=== PATIENT | male | born 1940 | race Caucasian/White ===

== ENCOUNTER 2018-07-18 10:39 | Emergency (ER) | payer MEDICARE, BC ==
[2018-07-18 11:27] LABS: ABSOLUTE BASOPHILS # (AUTO) 0.1 10^3/uL (0.0-0.2); ABSOLUTE EOSINOPHILS # (AUTO) 0.4 10^3/uL (0.0-0.6); ABSOLUTE LYMPHOCYTES (AUTO) 1.3 10^3/uL (0.5-4.7); ABSOLUTE MONOCYTES (AUTO) 0.8 10^3/uL (0.1-1.4); ABSOLUTE NEUT (AUTO) 6.4 10^3/uL (1.7-8.2); EOSINOPHILS % (AUTO) 4.5 % (0-6); HEMATOCRIT 27.6 % (37.9-51.0); HEMOGLOBIN 8.5 g/dL (13.5-17.0); MEAN CORPUSCULAR HEMOGLOBIN 24.5 pg (27.0-33.4); MEAN CORPUSCULAR HGB CONC 30.6 g/dL (32.0-36.0); MEAN CORPUSCULAR VOLUME 80 fl (80-97); MONOCYTES % (AUTO) 8.5 % (3-13); PLATELET COUNT 258 10^3/uL (150-450); RED BLOOD COUNT 3.45 10^6/uL (4.35-5.55); RED CELL DISTRIBUTION WIDTH 18.3 % (11.5-14.0); TOTAL CELLS COUNTED % (AUTO) 100 %
[2018-07-18 11:56] LABS: ALANINE AMINOTRANSFERASE 14 U/L (21-72); ALBUMIN 3.8 g/dL (3.5-5.0); ALKALINE PHOSPHATASE 68 U/L (38-126); ANION GAP 10 (5-19); ASPARTATE AMINO TRANSFERASE 28 U/L (17-59); BILIRUBIN,DIRECT 0.2 mg/dL (0.0-0.4); BILIRUBIN,TOTAL 0.3 mg/dL (0.2-1.3); BLOOD UREA NITROGEN 10 mg/dL (7-20); CALCIUM 9.2 mg/dL (8.4-10.2); CARBON DIOXIDE 22 mmol/L (22-30); CHLORIDE 115 mmol/L (98-107); GLUCOSE 84 mg/dL (75-110); SODIUM 146.5 mmol/L (137-145); TOTAL PROTEIN 7.2 g/dL (6.3-8.2)
[2018-07-18] MEDS ORDERED: NORMAL SALINE 250 ML IV PRN (12:45)
--- NOTE | 2018-07-18 17:56 | ER Document Report ---
ED General - General Chief Complaint: Abnormal Lab Results Stated Complaint: ABNORMAL LABS Primary Care Provider: BRAEDEN OAKES MD [Primary Care Provider] - Follow up as needed Mode of Arrival: Ambulatory Information source: Patient Notes: Patient is a 77-year-old male presented to the emergency department with complaint of abnormal labs. Patient had labs drawn last week and Dr. Lee bradshaw office and was found to have a hemoglobin of 8.5. Today labs were redrawn and he had a hemoglobin of 7.9. His primary care provider is requesting patient to come to the ED to have evaluation and a blood transfusion. Patient reports generalized weakness and fatigue lately. He states that he was recently diagnosed with colon cancer. He is supposed to have a follow-up with a surgeon this in [place]. He denies any nausea, vomiting, diarrhea or fevers. TRAVEL OUTSIDE OF THE [place] IN LAST 30 DAYS: No - Related Data Allergies/Adverse Reactions: No Known Allergies Allergy (Verified 07/18/18 11:09) Past Medical History - General Information source: Patient - Social History Smoking Status: Never Smoker Chew tobacco use (# tins/day): No Frequency of alcohol use: Social Drug Abuse: None Family History: Reviewed & Not Pertinent Patient has suicidal ideation: No Patient has homicidal ideation: No - Past Medical History Cardiac Medical History: Reports: Hx Congestive Heart Failure, Hx Coronary Artery Disease, Hx Heart Attack, Hx Hypertension, Hx Peripheral Vascular Disease Pulmonary Medical History: Reports: Hx COPD Renal/ Medical History: Denies: Hx Peritoneal Dialysis Malignancy Medical History: Reports Hx Colorectal Cancer GI Medical History: Reports: Hx Gastroesophageal Reflux Disease, Hx Ulcerative Colitis - History of "ulcerative colitis 20 years ago. Colonoscopy normal last year Musculoskeletal Medical History: Reports Hx Arthritis Past Surgical History: Reports: Hx Cardiac Surgery - pacer/defib, Hx Coronary Stent - 3, Hx Orthopedic Surgery - L hip. R toe, Hx Pacemaker - AICD/pacer Review of Systems - Review of Systems Constitutional: See HPI EENT: No symptoms reported Cardiovascular: No symptoms reported Respiratory: No symptoms reported Gastrointestinal: Abdominal pain - for months Genitourinary: No symptoms reported Male Genitourinary: No symptoms reported Musculoskeletal: No symptoms reported Skin: No symptoms reported Hematologic/Lymphatic: No symptoms reported Neurological/Psychological: No symptoms reported Physical Exam - Vital signs Vitals: BP 119/82 07/18/18 09:42 - Notes Notes: PHYSICAL EXAMINATION: GENERAL: Well-appearing, well-nourished and in no acute distress. HEAD: Atraumatic, normocephalic. EYES: Pupils equal round and reactive to light, extraocular movements intact, sclera anicteric, conjunctiva are normal. ENT: Nares patent, oropharynx clear without exudates. Moist mucous membranes. NECK: Normal range of motion, supple without lymphadenopathy. LUNGS: Breath sounds clear to auscultation bilaterally and equal. No wheezes rales or rhonchi. HEART: Regular rate and rhythm without murmurs ABDOMEN: Soft, nontender, nondistended abdomen. No guarding, no rebound. No masses appreciated. Musculoskeletal: Normal range of motion, no pitting or edema. No cyanosis. NEUROLOGICAL: Cranial nerves grossly intact. Normal speech, normal gait. Normal sensory, motor exams PSYCH: Normal mood, normal affect. SKIN: Warm, Dry, normal turgor, no rashes or lesions noted. Course - Re-evaluation Re-evalutation: Hemoglobin today is 8.5. Will transfuse patient due to patient having symptomat ic anemia. Patient will be discharged home at that time. He already has follow-up planned with his primary care provider as well as surgery for his recently diagnosed colon cancer. 07/18/18 18:00 Second unit of PRBCs has not been initiated as of this time. I called lab lab states the unit is ready. Charge nurse made aware. Patient received second unit of PRBCs and has had no signs of transfusion reaction. Patient tolerated well. Vital signs are within normal limits. Lung sounds remain clear and equal. Patient will be discharged home at this time with close follow-up with PCP. - Vital Signs Vital signs: Temp Pulse Resp BP Pulse Ox 98.3 F 73 15 153/68 H 98 07/18/18 20:25 07/18/18 20:25 07/18/18 21:01 07/18/18 21:00 07/18/18 21:01 - Laboratory Result Diagrams: 07/18/18 11:10 07/18/18 11:10 Laboratory results interpreted by me: 07/18/18 07/18/18 07/18/18 11:10 11:10 11:58 RBC 3.45 L Hgb 8.5 L Hct 27.6 L MCH 24.5 L MCHC 30.6 L RDW 18.3 H Sodium 146.5 H Chloride 115 H ALT 14 L Crossmatch See Detail Discharge - Discharge Clinical Impression: blood transfusion Fatigue Qualifiers: Fatigue type: unspecified Qualified Code(s): R53.83 - Other fatigue Condition: Stable Disposition: HOME, SELF-CARE Additional Instructions: You received 2 units of packed red blood cells today while in the emergency department. Your hemoglobin at the time of arrival was 8.5. Please keep a close follow-up with your primary care physician. Call them tomorrow to schedule a follow-up appointment. Return to the emergency department with any new or worsening symptoms. Referrals: BRAEDEN OAKES MD [Primary Care Provider] - Follow up as needed
[2018-07-18] MEDS ORDERED: PREGABALIN 50 MG CAPSULE PO ONE (19:31)
[2018-07-18] MEDS ORDERED: PREGABALIN 100 MG CAPSULE PO ONE (19:31)
[2018-07-18] MEDS ORDERED: IBUPROFEN 800 MG TABLET PO ONE (19:32)
[2018-07-18 21:24] VITALS: BP 133/84
== END 2018-07-18 21:26 | disposition home or self-care (01) ==
LOC: ER 10:39
DX: D64.9 Anemia, unspecified (principal); R53.1 Weakness; R53.83 Other fatigue; Z85.038 Personal history of other malignant neoplasm of large intestine; I50.9 Heart failure, unspecified; I25.10 Atherosclerotic heart disease of native coronary artery without angina pectoris; I11.0 Hypertensive heart disease with heart failure
CPT/HCPCS: 99283; 86900; 86901; 36415; 36430; 86850; 85025; 80053; 86920; P9016; A9270 ×3; J3490

== ENCOUNTER 2018-11-14 05:51 | Inpatient (IN) | payer MEDICARE, BC ==
--- NOTE | 2018-11-14 06:55 | ER Document Report ---
Entered by FADUMO CHO SCRIBE 11/14/18 0625 Acting as scribe for:SERGEI WHYTE MD ED Extremity Problem, Lower - General Stated Complaint: HIP PAIN Time Seen by Provider: 11/14/18 06:15 Primary Care Provider: BRAEDEN OAKES MD [Primary Care Provider] - Follow up as needed Mode of Arrival: Ambulatory Information source: Patient Notes: Patient is a 77-year-old male that presents to the emergency department today with complaints of left hip pain. Patient states he was sitting on the edge of his bathtub changing a bandage on his left ankle when the pain began. Patient states when he twisted to reach his left ankle he began having an excruciating sharp pain in his left hip causing him to slide off of the bathtub ledge down to the floor approximately 18 inches. Patient states he slid down easily, did not have a traumatic fall. Patient states he has had his left hip replaced twice as the first hip replacement "cup wore out". Patient states he was unable to ambulate after this secondary to pain. Patient denies a history of left hip dislocation. Patient states when he is lying still in bed he does not have any pain. TRAVEL OUTSIDE OF THE [place] IN LAST 30 DAYS: No - Related Data Allergies/Adverse Reactions: No Known Allergies Allergy (Verified 07/18/18 11:09) Past Medical History - General Information source: Patient, [facility] Records - Social History Smoking Status: Former Smoker - quit 42 years ago Cigarette use (# per day): No Chew tobacco use (# tins/day): No Smoking Education Provided: No Frequency of alcohol use: None Drug Abuse: None Lives with: Family Family History: Reviewed & Not Pertinent - Past Medical History Cardiac Medical History: Reports: Hx Congestive Heart Failure, Hx Coronary Artery Disease, Hx Heart Attack, Hx Hypertension, Hx Peripheral Vascular Disease Pulmonary Medical History: Reports: Hx COPD Malignancy Medical History: Reports Hx Colorectal Cancer GI Medical History: Reports: Hx Gastroesophageal Reflux Disease, Hx Ulcerative Colitis - History of "ulcerative colitis 20 years ago. Colonoscopy normal last year Musculoskeletal Medical History: Reports Hx Arthritis Past Surgical History: Reports: Hx Cardiac Surgery - pacer/defib, Hx Coronary Stent - 3, Hx Orthopedic Surgery - L hip. R toe, Hx Pacemaker - AICD/pacer Review of Systems - Review of Systems Constitutional: No symptoms reported EENT: No symptoms reported Cardiovascular: No symptoms reported Respiratory: No symptoms reported Gastrointestinal: No symptoms reported Genitourinary: No symptoms reported Male Genitourinary: No symptoms reported Musculoskeletal: See HPI, Joint pain - left hip pain Skin: No symptoms reported Hematologic/Lymphatic: No symptoms reported Neurological/Psychological: No symptoms reported -: Yes All other systems reviewed and negative Physical Exam - Vital signs Vitals: Temp Pulse Resp BP Pulse Ox 97.5 F 70 17 112/62 96 11/14/18 05:56 11/14/18 05:56 11/14/18 05:56 11/14/18 05:56 11/14/18 05:56 - Notes Notes: Physical Exam: General: Alert, appears uncomfortable. HEENT: Normocephalic. Atraumatic. PERRL. Extraocular movements intact. Oropharynx clear. Neck: Supple. Non-tender. Respiratory: No respiratory distress. Clear and equal breath sounds bilaterally. Cardiovascular: Regular rate and rhythm. Abdominal: Normal Inspection. Non-tender. No distension. Normal Bowel Sounds. Back: No gross abnormalities. Extremities: Upper extremities: Ulnar deviation of fingers bilaterally consistent with history of RA Lower extremities: No cyanosis or pitting edema. Left hip is tender with palpation over the greater trochanter and just posterior to that. Pain with flexion and external rotation of left hip. Ulnar deviation of toes bilaterally consistent with history of RA. Neurological: Normal cognition. AAOx4. Normal speech. Psychological: Normal affect. Normal Mood. Skin: Warm. Dry. Normal color. Course - Re-evaluation Re-evalutation: 11/14/18 14:04 Patient was evaluated by Dr. Dorsey and the plan to take the patient to the operating room to reduce the hip under general anesthesia. - Vital Signs Vital signs: Temp Pulse Resp BP Pulse Ox 97.5 F 88 10 L 115/64 100 11/14/18 05:56 11/14/18 09:57 11/14/18 13:16 11/14/18 13:16 11/14/18 13:16 - Laboratory Result Diagrams: 11/14/18 07:05 11/14/18 07:05 Laboratory results interpreted by me: 11/14/18 11/14/18 07:05 07:05 RBC 4.04 L Hgb 9.0 L Hct 29.7 L MCV 74 L MCH 22.2 L MCHC 30.3 L RDW 18.8 H Chloride 109 H Carbon Dioxide 20 L - Diagnostic Test Radiology reviewed: Image reviewed, Reports reviewed - Left prosthetic hip dislocation - EKG Interpretation by Me EKG shows normal: [place], Intervals, QRS Complexes, ST-T Waves Rate: Normal - 72 Rhythm: Other - Atrialventricular Dual-paced complexes When compared to previous EKG there are: No significant change - Consults Dr. Dorsey Consulted provider: will come to ER Procedures - Conscious Sedation Conscious sedation Consent obtained: Yes Pt with a severe systemic disease.: P3. - ASA Classification. Airway Evaluation: Normal anatomy Mallampati Classification: Class 2 Used during procedure: Suction available, IV access obtained, Pulse ox on pt., manager monitoring on pt. Medications administered: Etomidate Reversal agents: None I personally performed/intraservice time: Sedation, Procedure, 30 min or less Complications: No - Joint Reduction/Fracture Care Left Hip Consent obtained: Yes Conscious sedation: Yes Pre-procedure NV exam: Yes Post-procedure NV exam: Yes Post-reduction x-ray: Joint not reduced - X-ray not obtained, was not necessary, clinically the joint did not reduce. Reduction attempts: 2 Complications: No Notes: 11/14/18 14:02 Unable to reduce the hip following 2 consecutive 10 mg doses of etomidate and pain control. Discharge - Discharge Clinical Impression: Dislocation of hip joint prosthesis Qualifiers: Encounter type: initial encounter Qualified Code(s): T84.029A - Dislocation of unspecified internal joint prosthesis, initial encounter Condition: Stable Disposition: ADMITTED INPATIENT Admitting Provider: Dr. Dorsey Unit Admitted: Surgical Floor Referrals: BRAEDEN OAKES MD [Primary Care Provider] - Follow up as needed Scribe Attestation: 11/14/18 07:10 I personally performed the services described in the documentation, reviewed and edited the documentation which was dictated to the scribe in my presence, and it accurately records my words and actions. I personally performed the services described in the documentation, reviewed and edited the documentation which was dictated to the scribe in my presence, and it accurately records my words and actions.
[2018-11-14] MEDS ORDERED: NORMAL SALINE 1000 ML 500 ML IV ONE (07:04)
[2018-11-14] MEDS ORDERED: MORPHINE SULFATE 10 MG/ML INJ IV ONE ×4 (07:05→13:44)
[2018-11-14] MEDS ORDERED: ONDANSETRON HCL INJ/PF 4 MG/2 ML SDV IV ONE ×3 (07:05→13:44)
[2018-11-14] MEDS ORDERED: ETOMIDATE INJ/PF 20 MG/10 ML SDV IV ONE (07:07)
[2018-11-14 07:19] LABS: ABSOLUTE BASOPHILS # (AUTO) 0.1 10^3/uL (0.0-0.2); ABSOLUTE EOSINOPHILS # (AUTO) 0.3 10^3/uL (0.0-0.6); ABSOLUTE LYMPHOCYTES (AUTO) 2.4 10^3/uL (0.5-4.7); ABSOLUTE NEUT (AUTO) 5.1 10^3/uL (1.7-8.2); EOSINOPHILS % (AUTO) 3.3 % (0-6); HEMATOCRIT 29.7 % (37.9-51.0); LYMPHOCYTES % (AUTO) 27.4 % (13-45); MEAN CORPUSCULAR HEMOGLOBIN 22.2 pg (27.0-33.4); MEAN CORPUSCULAR HGB CONC 30.3 g/dL (32.0-36.0); MEAN CORPUSCULAR VOLUME 74 fl (80-97); MONOCYTES % (AUTO) 11.3 % (3-13); PLATELET COUNT 263 10^3/uL (150-450); RED BLOOD COUNT 4.04 10^6/uL (4.35-5.55); RED CELL DISTRIBUTION WIDTH 18.8 % (11.5-14.0); TOTAL CELLS COUNTED % (AUTO) 100 %; WHITE BLOOD COUNT 8.9 10^3/uL (4.0-10.5)
--- NOTE | 2018-11-14 07:30 | RADIOLOGY REPORT (SQ) ---
EXAM DESCRIPTION: XR HIP 2 OR MORE VIEWS COMPLETED DATE/TME: 11/14/2018 06:23 CLINICAL HISTORY: 77 years, Male, fall, pain COMPARISON: None. FINDINGS: 2 views of the left hip. Superior dislocation involving the femoral component of the left total hip arthroplasty. No fracture identified. Osteopenia. Mild right hip joint space narrowing. IMPRESSION: 1. Superior dislocation of the femoral component of the left total hip arthroplasty. copyright 2010 [employer]- All Rights Reserved
--- NOTE | 2018-11-14 07:35 | EKG REPORT ---
SEVERITY:- ABNORMAL ECG - ATRIAL-VENTRICULAR DUAL-PACED COMPLEXES : Confirmed by: John Nguyen MD 14-Nov-2018 07:34:52
[2018-11-14 07:52] LABS: ALBUMIN 3.7 g/dL (3.5-5.0); ALKALINE PHOSPHATASE 75 U/L (38-126); ANION GAP 10 (5-19); ASPARTATE AMINO TRANSFERASE 30 U/L (17-59); BILIRUBIN,DIRECT 0.2 mg/dL (0.0-0.4); BILIRUBIN,TOTAL 0.2 mg/dL (0.2-1.3); BLOOD UREA NITROGEN 16 mg/dL (7-20); CALCIUM 9.4 mg/dL (8.4-10.2); CARBON DIOXIDE 20 mmol/L (22-30); CHLORIDE 109 mmol/L (98-107); GLUCOSE 91 mg/dL (75-110); POTASSIUM 3.7 mmol/L (3.6-5.0); TOTAL PROTEIN 6.9 g/dL (6.3-8.2)
--- NOTE | 2018-11-14 12:48 | PDOC H&P ---
History of Present Illness Admission Date/PCP: BRAEDEN OAKES MD Patient complains of: Left hip pain History of Present Illness: KIRSTEN SUAZO is a 77 year old male With history of left total hip arthroplasty original procedure was performed 26 years ago and then a revision of the acetabulum approximately 12 years ago. Patient states he has no history of dislocation. He states this morning he was turning his leg in order to adequately dressed the wound along his ankle when he felt a pop. Patient states he was unable to ambulate. Was brought to the emergency room where x-rays demonstrate hip dislocation. Patient states pain is worse with any motion. Denies numbness or tingling. Attempted closed reduction was performed emergency room but unsuccessfully. Pain 04/17. Past Medical History Cardiac Medical History: Reports: Congestive Heart Failure, Coronary Artery Disease, Myocardial Infarction, Hypertension, Peripheral Vascular Disease Pulmonary Medical History: Reports: Chronic Obstructive Pulmonary Disease (COPD) Malignancy Medical History: Reports: Colorectal Cancer GI Medical History: Reports: Gastroesophageal Reflux Disease, Ulcerative Colitis - History of "ulcerative colitis 20 years ago. Colonoscopy normal last year Musculoskeltal Medical History: Reports: Arthritis Past Surgical History Past Surgical History: Reports: Coronary Stent - 3, Orthopedic Surgery - L hip. R toe, Pacemaker - AICD/pacer Social History Lives with: Family Smoking Status: Former Smoker - quit 42 years ago Frequency of Alcohol Use: Rare Hx Recreational Drug Use: No Hx Prescription Drug Abuse: No Family History Family History: Reviewed & Not Pertinent Parental Family History Reviewed: No Children Family History Reviewed: Yes Sibling(s) Family History Reviewed.: No Medication/Allergy Home Medications: Carvedilol 12.5 mg PO BID 10/31/15 Clopidogrel Bisulfate [Clopidogrel] 75 mg PO QHS 10/31/15 Acetaminophen [Tylenol 325 mg Tablet] 650 mg PO Q4HP PRN tablet 11/01/15 Aspirin [Ecotrin] 81 mg PO DAILY PRN 11/01/15 Ciprofloxacin HCl [Cipro 500 mg Tablet] 500 mg PO BID #20 tablet 11/01/15 Docusate Sodium [Colace 100 mg Capsule] 100 mg PO BID #60 capsule 11/01/15 Methadone HCl 10 mg PO TID 11/01/15 Metronidazole [Flagyl 500 mg Tablet] 500 mg PO TID #30 tablet 11/01/15 Omeprazole 20 mg PO DAILY 11/01/15 Polyethylene Glycol 3350 [Miralax Powder 17 gm/Packet] 17 gm PO DAILY #30 powd.pack 11/01/15 Prednisone 5 mg PO DAILY 11/01/15 Allergies/Adverse Reactions: No Known Allergies Allergy (Verified 07/18/18 11:09) Review of Systems Constitutional: ABSENT: chills, fever(s), headache(s), weight gain, weight loss Eyes: ABSENT: visual disturbances Ears: ABSENT: hearing changes Cardiovascular: ABSENT: chest pain, dyspnea on exertion, edema, orthropnea, palpitations Respiratory: ABSENT: cough, hemoptysis Gastrointestinal: ABSENT: abdominal pain, constipation, diarrhea, hematemesis, hematochezia, nausea, vomiting Genitourinary: ABSENT: dysuria, hematuria Musculoskeletal: PRESENT: as per HPI Integumentary: ABSENT: rash, wounds Neurological: ABSENT: abnormal gait, abnormal speech, confusion, dizziness, focal weakness, syncope Psychiatric: ABSENT: anxiety, depression, homidical ideation, suicidal ideation Endocrine: ABSENT: cold intolerance, heat intolerance, menstrual abnormalities, polydipsia, polyuria Hematologic/Lymphatic: ABSENT: easy bleeding, easy bruising, lymphadenopathy Physical Exam Vital Signs: Temp Pulse Resp BP Pulse Ox 97.5 F 88 15 126/84 H 100 11/14/18 05:56 11/14/18 09:57 11/14/18 10:31 11/14/18 10:31 11/14/18 10:31 Intake & Output 11/13/18 11/14/18 11/15/18 06:59 06:59 06:59 Intake Total 500 Balance 500 Weight 73.028 kg General appearance: PRESENT: no acute distress, well-developed, well-nourished Head exam: PRESENT: atraumatic, normocephalic Eye exam: PRESENT: conjunctiva pink, EOMI, PERRLA. ABSENT: scleral icterus Ear exam: PRESENT: normal external ear exam Mouth exam: PRESENT: moist, tongue midline Neck exam: PRESENT: full ROM. ABSENT: carotid bruit, JVD, lymphadenopathy, thyromegaly Cardiovascular exam: PRESENT: RRR. ABSENT: diastolic murmur, rubs, systolic murmur Pulses: PRESENT: normal dorsalis pedis pul, +2 pedal pulses bilateral Vascular exam: PRESENT: normal capillary refill GI/Abdominal exam: PRESENT: normal bowel sounds, soft. ABSENT: distended, guarding, mass, organolmegaly, rebound, tenderness Rectal exam: PRESENT: deferred Musculoskeletal exam: PRESENT: other - Left hip: Short/externally rotated. Pain with any motion. Intact plantarflexion/dorsiflexion. No sensory deficits. Neurological exam: PRESENT: alert, awake, oriented to person, oriented to place, oriented to time, oriented to situation, CN II-XII grossly intact. ABSENT: motor sensory deficit Psychiatric exam: PRESENT: appropriate affect, normal mood. ABSENT: homicidal ideation, suicidal ideation Skin exam: PRESENT: dry, intact, warm, other - Wound along the lateral malleolus of the left leg no erythema or drainage.. ABSENT: cyanosis, rash Results Laboratory Results: 11/14/18 07:05 11/14/18 07:05 11/14/18 11/14/18 07:05 07:05 WBC 8.9 RBC 4.04 L Hgb 9.0 L Hct 29.7 L MCV 74 L MCH 22.2 L MCHC 30.3 L RDW 18.8 H Plt Count 263 Seg Neutrophils % 57.0 Sodium 139.3 Potassium 3.7 Chloride 109 H Carbon Dioxide 20 L Anion Gap 10 BUN 16 Creatinine 1.00 Est GFR ( Amer) > 60 Glucose 91 Calcium 9.4 Total Bilirubin 0.2 AST 30 Alkaline Phosphatase 75 Total Protein 6.9 Albumin 3.7 Impressions: Hip X-Ray 11/14/18 06:23 IMPRESSION: 1. Superior dislocation of the femoral component of the left total hip arthroplasty. copyright 2010 [employer]- All Rights Reserved Assessment & Plan - Diagnosis (1) Dislocation of hip joint prosthesis Qualifiers: Encounter type: initial encounter Qualified Code(s): T84.029A - Dislocation of unspecified internal joint prosthesis, initial encounter; Z96.649 - Presence of unspecified artificial hip joint Is this a current diagnosis for this admission?: Yes Plan: Patient sustained left prosthetic hip dislocation. Today we discussed treatment options given the fact closed reduction was unsuccessful in the emergency room decision was made to proceed with closed reduction in the operating room. Risks and benefits of the surgical procedure were explained patient verbalized understanding consented for surgical procedure.
[2018-11-14] MEDS ORDERED: SUCCINYLCHOLINE CHLORIDE INJ 200 MG/10 ML VIAL ONE (14:39)
[2018-11-14] MEDS ORDERED: FENTANYL CITRATE INJ/PF 100 MCG/2 ML AMPUL ONE (16:11)
[2018-11-14] MEDS ORDERED: PROPOFOL INJ 200 MG/20 ML VIAL IV ONE (16:12)
--- NOTE | 2018-11-14 16:55 | Discharge Summary ---
Discharge Summary (SDC) - Discharge Final Diagnosis: Left prosthetic hip dislocation Date of Surgery: 11/14/18 Discharge Date: 11/14/18 Condition: Good Treatment or Instructions: Weightbearing as tolerated ambulation. Avoid the position of flexion, adduction, and internal rotation Prescriptions: Oxycodone HCl/Acetaminophen [Percocet 5-325 mg Tablet] 1 tab PO Q6 PRN #25 tab PRN Reason: Referrals: BRAEDEN OAKES MD [Primary Care Provider] - Follow up as needed Discharge Diet: Regular Respiratory Treatments at Home: Deep Breathing/Coughing Home Care Assistance: None Needed Report the Following to Your Physician Immediately: Shortness of Breath, Fever over 101 Degrees
--- NOTE | 2018-11-14 16:56 | Operative Report ---
Operative Report DATE OF SURGERY: 11/14/18 PREOPERATIVE DIAGNOSIS: Left prosthetic hip dislocation OPERATION: Closed reduction left prosthetic hip SURGEON: DESIRE BYERS ANESTHESIA: Moderate Sedation PROCEDURE: With the patient supine on the operative table with muscle relaxant on board the left hip was manipulated with a combination of internal rotation, distraction, adduction and subsequently a slow gentle external rotation once the head was centered over the cup. Radiographically there was a confirmed concentric reduction of the hip. The patient's return to the PACU in satisfactory condition.
[2018-11-14] MEDS ORDERED: PROMETHAZINE HCL INJ 25 MG/1 ML VIAL IV PRN (17:19)
[2018-11-14] MEDS ORDERED: DIPHENHYDRAMINE HCL 50 MG/ML VIAL IV PRN (17:19)
[2018-11-14] MEDS ORDERED: ONDANSETRON HCL INJ/PF 4 MG/2 ML SDV IV PRN (17:19)
[2018-11-14] MEDS ORDERED: FENTANYL CITRATE INJ/PF 100 MCG/2 ML AMPUL IV PRN ×3 (17:19)
[2018-11-14 17:44] VITALS: BP 117/52
--- NOTE | 2018-11-14 19:22 | RADIOLOGY REPORT (SQ) ---
EXAM DESCRIPTION: NO CHG FLUORO; HIP LEFT AP/LATERAL COMPLETED DATE/TIME: 11/14/2018 6:49 pm REASON FOR STUDY: CLOSED REDUCTION HIP IN OR COMPARISON: 11/14/2018 FLUOROSCOPY TIME: 0.6 minutes 1 images saved to PACS. TECHNIQUE: Intra-operative images acquired during surgical procedure to evaluate progress. NUMBER OF IMAGES: 1 LIMITATIONS: None. FINDINGS: Reduction of the previously noted prostatic dislocation. IMPRESSION: IMAGE(S) OBTAINED DURING PROCEDURE. COMMENT: Quality ID 145: Final reports for procedures using fluoroscopy that document radiation exp osure indices, or exposure time and number of fluorographic images (if radiation exposure indices are not available) Please consult full operative report of the attending physician for description of the procedure. TECHNICAL DOCUMENTATION: JOB ID: [id number] [employer]- All Rights Reserved Reading location - IP/workstation name: [email or web address]
--- NOTE | 2018-11-14 19:22 | RADIOLOGY REPORT (SQ) ---
EXAM DESCRIPTION: NO CHG FLUORO; HIP LEFT AP/LATERAL COMPLETED DATE/TIME: 11/14/2018 6:49 pm REASON FOR STUDY: CLOSED REDUCTION HIP IN OR COMPARISON: 11/14/2018 FLUOROSCOPY TIME: 0.6 minutes 1 images saved to PACS. TECHNIQUE: Intra-operative images acquired during surgical procedure to evaluate progress. NUMBER OF IMAGES: 1 LIMITATIONS: None. FINDINGS: Reduction of the previously noted prostatic dislocation. IMPRESSION: IMAGE(S) OBTAINED DURING PROCEDURE. COMMENT: Quality ID 145: Final reports for procedures using fluoroscopy that document radiation exp osure indices, or exposure time and number of fluorographic images (if radiation exposure indices are not available) Please consult full operative report of the attending physician for description of the procedure. TECHNICAL DOCUMENTATION: JOB ID: [id number] [employer]- All Rights Reserved Reading location - IP/workstation name: [email or web address]
== END 2018-11-14 21:00 | disposition home or self-care (01) | DRG 561 ==
LOC: ER 05:51 → EH 14:19 → 5 16:52 → INOR 17:35
PROVIDERS: ADMIT Orthopaedic Surgery; ATTEND Orthopaedic Surgery
PROC: 0SWSXJZ Revision of Synthetic Substitute in Left Hip Joint, Femoral Surface, External Approach (ICD-10-PCS; principal; 2018-11-14 15:30)
DX: T84.021A Dislocation of internal left hip prosthesis, initial encounter (principal); I50.9 Heart failure, unspecified; I25.10 Atherosclerotic heart disease of native coronary artery without angina pectoris; I11.0 Hypertensive heart disease with heart failure; I73.9 Peripheral vascular disease, unspecified; J44.9 Chronic obstructive pulmonary disease, unspecified; F11.90 Opioid use, unspecified, uncomplicated; K21.9 Gastro-esophageal reflux disease without esophagitis; Z96.642 Presence of left artificial hip joint; I25.2 Old myocardial infarction; Z85.038 Personal history of other malignant neoplasm of large intestine; Z95.810 Presence of automatic (implantable) cardiac defibrillator; Z79.82 Long term (current) use of aspirin; Z79.52 Long term (current) use of systemic steroids; Z79.899 Other long term (current) drug therapy
CPT/HCPCS: 01200; 36415; 80053; 85025; 93005; 93010; 96361; 96374; 96375; 96376; 99285; 99152; J0330; J2270; J2405; J2704; J3010; J3490; J7030

== ENCOUNTER → 2018-11-23 | Outpatient (CLI) | payer MEDICARE, BC ==
--- NOTE | 2018-11-23 13:55 | RADIOLOGY REPORT (SQ) ---
EXAM DESCRIPTION: ANKLE LEFT COMPLETE COMPLETED DATE/TIME: 11/23/2018 11:50 am REASON FOR STUDY: NON-PRS CHRONIC ULCER OF LT ANKLE W FAT LAYER EXPOSED L97.312 NON-PRS CHRONIC ULC ER OF RIGHT ANKLE W FAT LAYER EXP L97.322 NON-PRESSURE CHRONIC ULCER OF LEFT ANKLE W FAT LAYER COMPARISON: None. NUMBER OF VIEWS: Three views. TECHNIQUE: AP, lateral, and oblique without weight bearing radiographic images acquired of the left ankle. LIMITATIONS: None. FINDINGS: MINERALIZATION: Normal. BONES: No acute fracture or dislocation. No worrisome bone lesions. JOINTS: Degenerative changes with osteophytes. SOFT TISSUES: Superficial soft tissue defect adjacent to the lateral malleolus. No soft tissue gas o r radiopaque foreign body. OTHER: No other significant finding. IMPRESSION: SUPERFICIAL SOFT TISSUE DEFECT ADJACENT TO THE LATERAL MALLEOLUS. NO UNDERLYING BONY FI NDINGS. TECHNICAL DOCUMENTATION: JOB ID: [id number] [employer]- All Rights Reserved Reading location - IP/workstation name: [email or web address]
--- NOTE | 2018-11-23 13:57 | RADIOLOGY REPORT (SQ) ---
EXAM DESCRIPTION: ANKLE RIGHT COMPLETE COMPLETED DATE/TIME: 11/23/2018 11:50 am REASON FOR STUDY: NON-PRS CHRONIC ULCER OF RIGHT ANKLE W FAT LAYER EXPOSED L97.312 NON-PRS CHRONIC ULCER OF RIGHT ANKLE W FAT LAYER EXP L97.322 NON-PRESSURE CHRONIC ULCER OF LEFT ANKLE W FAT LAYER COMPARISON: None. NUMBER OF VIEWS: Three views. TECHNIQUE: AP, lateral, and oblique without weight bearing radiographic images acquired of the right ankle. LIMITATIONS: None. FINDINGS: MINERALIZATION: Normal. BONES: No acute fracture or dislocation. Hardware in the midfoot. No worrisome bone lesions. JOINTS: Degenerative changes with osteophytes. SOFT TISSUES: Superficial soft tissue defect adjacent to the lateral malleolus. No soft tissue gas o r radiopaque foreign object. OTHER: No other significant finding. IMPRESSION: SUPERFICIAL SOFT TISSUE DEFECT. NO UNDERLYING BONY FINDINGS. TECHNICAL DOCUMENTATION: JOB ID: [id number] [employer]- All Rights Reserved Reading location - IP/workstation name: [email or web address]
== END ==
LOC: WC 11:19
PROVIDERS: ATTEND Nurse Practitioner Family
DX: L97.312 Non-pressure chronic ulcer of right ankle with fat layer exposed (principal); L97.322 Non-pressure chronic ulcer of left ankle with fat layer exposed
CPT/HCPCS: 36415; 85652; 86140

== ENCOUNTER → 2018-11-29 | Outpatient (CLI) | payer MEDICARE, BC ==
--- NOTE | 2018-11-30 15:51 | XCELERA REPORT ---
[address] [address] Lower Extremity Arterial Evaluation Name: KIRSTEN SUAZO Age: 78 yrs Gender: Male : 1940 Patient Status: Outpatient Patient Location: Study Date: 11/29/2018 10:12 AM Procedure: A color flow and duplex scan of the lower extremity arteries was performed bilaterally with velocity and waveform anaylsis. Ankle brachial indicies performed. Reason For Study: RT CALF ULCER Ordering Physician: FLAQUITA FLANAGAN Performed By: Raheem Romo Measurements and Calculations Right Left RAILWAY ENGINEER PSV 112.5 113.9 cm/sec Prox PFA PSV -94.8 -83.5 cm/sec Prox SFA PSV 99.9 113.9 cm/sec Mid SFA PSV -101.2 -122.6cm/sec Dist SFA PSV -76.1 -78.9 cm/sec Prox Pop A PSV 60.1 87.1 cm/sec Dist CONSTANCE PSV 75.0 89.4 cm/sec Dist GROUNDS AND NURSERY SPECIALIST PSV 98.2 70.7 cm/sec Cuauhtemoc Pedis PSV 14.3 75.6 cm/sec Right Side Arterial Evaluation Normal velocity and triphasic waveforms noted from the Common Femoral artery to the infrageniculate vessels . Biphasic with low velocity in the Dorsalis Pedis artery. Retrograde flow. Ankle Brachial index 1,21. Left Side Arterial Evaluation Normal velocity and triphasic waveforms noted from the Common Femoral artery to the infrageniculate vessels . Ankle Brachial index 1,21. Interpretation Summary Mild hemodynamically significant lesions in the right lower extremity only, on duplex imaging, at rest. No hemodynamically significant lesions in the left lower extremity only, on duplex imaging, at rest. Duplex findings are normal on the left. On the right, there is mild disease with well compensated changes in the Dorsalis Pedis. CAMILO's are normal, bilaterally, suggesting the absence of obstructive disease. : FLAQUITA FLANAGAN > Matthew Suazo
== END ==
LOC: SP 09:47
PROVIDERS: ATTEND Nurse Practitioner Family
DX: L97.312 Non-pressure chronic ulcer of right ankle with fat layer exposed (principal); L97.322 Non-pressure chronic ulcer of left ankle with fat layer exposed
CPT/HCPCS: 93922; 93925

== ENCOUNTER 2019-08-12 09:26 | Emergency (ER) | payer MEDICARE, BC ==
--- NOTE | 2019-08-12 10:32 | ER Document Report ---
ED GI/ - General Chief Complaint: Abdominal Pain Stated Complaint: ABDOMINAL PAIN Time Seen by Provider: 08/12/19 10:18 Primary Care Provider: BRAEDEN OAKES MD [Primary Care Provider] - Follow up as needed Mode of Arrival: Ambulatory Information source: Patient Notes: 78-year-old male presents to the emergency department with a complaint of constipation and urinary retention. States that he has had no bowel movement over the past 24 to 36 hours and has urgency to urinate however can only get a few drops out. States that he had similar episode in the past that time he was given enema and his urinary output improved. He has a history of rheumatoid a rthritis is taking number of medications. Presently is on Levaquin and he feels the Levaquin is giving him some associated constipation. TRAVEL OUTSIDE OF THE [place] IN LAST 30 DAYS: No - Related Data Allergies/Adverse Reactions: No Known Allergies Allergy (Verified 07/18/18 11:09) Past Medical History - Social History Smoking Status: Former Smoker Frequency of alcohol use: Occasional Drug Abuse: None Family History: Reviewed & Not Pertinent - Past Medical History Cardiac Medical History: Reports: Hx Congestive Heart Failure, Hx Coronary Arter y Disease, Hx Heart Attack, Hx Hypertension, Hx Peripheral Vascular Disease Pulmonary Medical History: Reports: Hx COPD Renal/ Medical History: Denies: Hx Peritoneal Dialysis Malignancy Medical History: Reports Hx Colorectal Cancer GI Medical History: Reports: Hx Gastroesophageal Reflux Disease, Hx Ulcerative Colitis - History of "ulcerative colitis 20 years ago. Colonoscopy normal last year Musculoskeletal Medical History: Reports Hx Arthritis Past Surgical History: Reports: Hx Cardiac Surgery - pacer/defib, Hx Coronary Stent - 3, Hx Orthopedic Surgery - L hip. R toe, Hx Pacemaker - AICD/pacer Review of Systems - Review of Systems Notes: Constitutional: Negative for fever. HENT: Negative for sore throat. Eyes: Negative for visual changes. Cardiovascular: Negative for chest pain. Respiratory: Negative for shortness of breath. Gastrointestinal: + Abdominal pain, + constipation Genitourinary: + Urinary retention Musculoskeletal: Negative for back pain. Skin: Negative for rash. Neurological: Negative for headaches, weakness or numbness. 10 point ROS negative except as marked above and in HPI. Physical Exam - Vital signs Vitals: Temp Pulse Resp BP Pulse Ox 97.8 F 70 16 104/59 L 95 08/12/19 09:37 08/12/19 09:37 08/12/19 09:37 08/12/19 09:37 08/12/19 09:37 - Notes Notes: PHYSICAL EXAMINATION: Physical Exam: General: Chronically ill 78-year-old male with obvious deformities in the finger joints secondary to rheumatoid arthritis. HEENT: NC/AT, pupils equal round and reactive to light, MM moist,nares clear, oropharynx clear, airway patent Neck: supple, no adenopathy, no masses. Good range of motion Lungs: clear, no wheezing, no rales no rhonchi CVS: Regular rate and rhythm no murmur gallop or rub Abdomen: Soft, active, nontender, no masses, no hepatosplenomegaly Ext: Bilateral metacarpal phalangeal and distal phalangeal abnormalities related to rheumatoid arthritis with ulnar deviation bilaterally. Neuro: Alert and responsive, moving all 4 extremities on command, cranial nerves intact, no focal findings Skin: Intact no open lesions, no rash PSYCH: Normal mood, normal affect. Course - Vital Signs Vital signs: Temp Pulse Resp BP Pulse Ox 97.8 F 70 16 104/59 L 95 08/12/19 09:37 08/12/19 09:37 08/12/19 09:37 08/12/19 09:37 08/12/19 09:37 - Laboratory Result Diagrams: 08/12/19 10:18 08/12/19 10:18 Laboratory results interpreted by me: 08/12/19 08/12/19 08/12/19 10:18 10:18 12:52 RBC 3.38 L Hgb 10.1 L Hct 30.9 L RDW 15.0 H Sodium 136.7 L Carbon Dioxide 21 L BUN 28 H Urine Ketones TRACE H Discharge - Discharge Clinical Impression: Urinary retention Constipation Qualifiers: Constipation type: unspecified constipation type Qualified Code(s): K59.00 - Constipation, unspecified Condition: Good Disposition: HOME, SELF-CARE Instructions: Constipation ([facility]) Additional Instructions: You are seen in the emergency department today with constipation. Urinary retention may be related to the constipation as the bladder outlet may be impacted upon by increased stool in the GI tract. It is important to increase your fluid intake as well as to use a stool softener and increase the fiber in your diet. Given that this is a recurrent problem follow-up with your primary care doctor will be imperative. If you have further difficulties or concerns you may return to the emergency department for further evaluation. Referrals: BRAEDEN OAKES MD [Primary Care Provider] - Follow up as needed
[2019-08-12 10:38] LABS: ABSOLUTE BASOPHILS # (AUTO) 0.1 10^3/uL (0.0-0.2); ABSOLUTE EOSINOPHILS # (AUTO) 0.2 10^3/uL (0.0-0.6); ABSOLUTE LYMPHOCYTES (AUTO) 1.6 10^3/uL (0.5-4.7); ABSOLUTE MONOCYTES (AUTO) 1.1 10^3/uL (0.1-1.4); ABSOLUTE NEUT (AUTO) 6.7 10^3/uL (1.7-8.2); BASOPHILS % (AUTO) 1.1 % (0-2); EOSINOPHILS % (AUTO) 2.5 % (0-6); HEMATOCRIT 30.9 % (37.9-51.0); HEMOGLOBIN 10.1 g/dL (13.5-17.0); LYMPHOCYTES % (AUTO) 16.1 % (13-45); MEAN CORPUSCULAR HGB CONC 32.8 g/dL (32.0-36.0); MEAN CORPUSCULAR VOLUME 91 fl (80-97); MONOCYTES % (AUTO) 11.2 % (3-13); PLATELET COUNT 217 10^3/uL (150-450); RED BLOOD COUNT 3.38 10^6/uL (4.35-5.55); SEGMENTED NEUTROPHILS % (AUTO) 69.1 % (42-78); TOTAL CELLS COUNTED % (AUTO) 100 %; WHITE BLOOD COUNT 9.6 10^3/uL (4.0-10.5)
[2019-08-12 10:48] LABS: ALBUMIN 3.5 g/dL (3.5-5.0); ALKALINE PHOSPHATASE 65 U/L (38-126); ANION GAP 10 (5-19); ASPARTATE AMINO TRANSFERASE 25 U/L (17-59); BILIRUBIN,DIRECT 0.1 mg/dL (0.0-0.4); BILIRUBIN,TOTAL 0.7 mg/dL (0.2-1.3); BLOOD UREA NITROGEN 28 mg/dL (7-20); CALCIUM 8.8 mg/dL (8.4-10.2); CARBON DIOXIDE 21 mmol/L (22-30); CHLORIDE 106 mmol/L (98-107); GLUCOSE 85 mg/dL (75-110); POTASSIUM 3.8 mmol/L (3.6-5.0); TOTAL PROTEIN 6.6 g/dL (6.3-8.2)
--- NOTE | 2019-08-12 11:01 | RADIOLOGY REPORT (SQ) ---
EXAM DESCRIPTION: KUB/ABDOMEN (SINGLE VIEW) IMAGES COMPLETED DATE/TIME: 08/12/2019 10:41 am REASON FOR STUDY: Abdominal pain/constipation COMPARISON: None. NUMBER OF VIEWS: One view TECHNIQUE: Supine radiographic image of the abdomen acquired. LIMITATIONS: None. FINDINGS: BOWEL GAS PATTERN: Normal bowel gas pattern. No dilated loops. There is a moderate amount of stool noted within the rectal vault. The stool burden is otherwise unremarkable. CALCIFICATIONS: No suspicious calcifications. SOFT TISSUES: Postsurgical changes present in the right upper quadrant HARDWARE: Left hip total prosthesis without evidence of hardware complication. BONES: No acute fracture. No worrisome bone lesions. OTHER: No other significant finding. IMPRESSION: Moderate amount of stool in the rectal vault, otherwise unremarkable exam TECHNICAL DOCUMENTATION: JOB ID: [id number] 2010 Dr. [employer]TO[employer]- All Rights Reserved Reading location - IP/workstation name: [email or web address]
[2019-08-12 13:27] LABS: APPEARANCE,URINE CLEAR; BILIRUBIN,URINE NEGATIVE (NEGATIVE); COLOR,URINE YELLOW; GLUCOSE, URINE NEGATIVE (NEGATIVE); KETONES,URINE TRACE mg/dL (NEGATIVE); LEUKOCYTE ESTERASE,URINE NEGATIVE (NEGATIVE); NITRITE,URINE NEGATIVE (NEGATIVE); PROTEIN,URINE NEGATIVE (NEGATIVE); URINE SPECIFIC GRAVITY 1.014; UROBILINOGEN,URINE NEGATIVE mg/dL (<2.0)
[2019-08-12 13:58] VITALS: BP 111/65
== END 2019-08-12 13:59 | disposition home or self-care (01) ==
LOC: ER 09:26
DX: R33.9 Retention of urine, unspecified (principal); K59.00 Constipation, unspecified; M06.9 Rheumatoid arthritis, unspecified; Z79.899 Other long term (current) drug therapy; Z87.891 Personal history of nicotine dependence; Z85.038 Personal history of other malignant neoplasm of large intestine; Z87.19 Personal history of other diseases of the digestive system
CPT/HCPCS: 36415; 74018; 80053; 81001; 83690; 85025; 99284

== ENCOUNTER → 2019-09-29 | Outpatient (CLI) | payer MEDICARE, BC ==
[2019-09-29 13:38] LABS: ABSOLUTE BASOPHILS # (AUTO) 0.1 10^3/uL (0.0-0.2); ABSOLUTE EOSINOPHILS # (AUTO) 0.5 10^3/uL (0.0-0.6); ABSOLUTE LYMPHOCYTES (AUTO) 1.1 10^3/uL (0.5-4.7); ABSOLUTE MONOCYTES (AUTO) 0.8 10^3/uL (0.1-1.4); BASOPHILS % (AUTO) 0.8 % (0-2); EOSINOPHILS % (AUTO) 5.9 % (0-6); HEMATOCRIT 23.1 % (37.9-51.0); LYMPHOCYTES % (AUTO) 13.3 % (13-45); MEAN CORPUSCULAR HGB CONC 30.3 g/dL (32.0-36.0); MEAN CORPUSCULAR VOLUME 76 fl (80-97); MONOCYTES % (AUTO) 9.5 % (3-13); PLATELET COUNT 227 10^3/uL (150-450); RED BLOOD COUNT 3.05 10^6/uL (4.35-5.55); RED CELL DISTRIBUTION WIDTH 21.9 % (11.5-14.0); SEGMENTED NEUTROPHILS % (AUTO) 70.5 % (42-78); TOTAL CELLS COUNTED % (AUTO) 100 %; WHITE BLOOD COUNT 8.6 10^3/uL (4.0-10.5)
--- NOTE | 2019-09-29 13:42 | RADIOLOGY REPORT (SQ) ---
EXAM DESCRIPTION: ANKLE LEFT COMPLETE IMAGES COMPLETED DATE/TIME: 09/29/2019 12:52 pm REASON FOR STUDY: NON-PRESSURE CHRONIC ULCER OF LEFT ANKLE W FAT LAYER EXPOSED L97.322 NON-PRESSURE CHRONIC ULCER OF LEFT ANKLE W FAT LAYER COMPARISON: None. NUMBER OF VIEWS: Three views. TECHNIQUE: AP, lateral, and oblique radiographic images acquired of the left ankle. LIMITATIONS: None. FINDINGS: MINERALIZATION: Normal. BONES: No acute fracture or dislocation. No evidence of osteomyelitis. No worrisome bone lesions. JOINTS: Talonavicular degenerative joint changes. SOFT TISSUES: Chronic ulcer over the lateral malleolus. OTHER: No other significant finding. IMPRESSION: There is no osteomyelitis. There are degenerative joint changes. TECHNICAL DOCUMENTATION: JOB ID: [id number] 2010 [employer]- All Rights Reserved Reading location - IP/workstation name: [email or web address]
[2019-09-29 13:49] LABS: ALBUMIN 3.6 g/dL (3.5-5.0); ALKALINE PHOSPHATASE 66 U/L (38-126); ANION GAP 9 (5-19); ASPARTATE AMINO TRANSFERASE 24 U/L (17-59); BILIRUBIN,DIRECT 0.1 mg/dL (0.0-0.4); BILIRUBIN,TOTAL 0.5 mg/dL (0.2-1.3); BLOOD UREA NITROGEN 16 mg/dL (7-20); C-REACTIVE PROTEIN 54.5 mg/L (<10.0); CALCIUM 8.7 mg/dL (8.4-10.2); CARBON DIOXIDE 19 mmol/L (22-30); CHLORIDE 112 mmol/L (98-107); GLUCOSE 93 mg/dL (75-110); POTASSIUM 4.3 mmol/L (3.6-5.0); TOTAL PROTEIN 7.1 g/dL (6.3-8.2)
[2019-09-29 14:15] LABS: ERYTHROCYTE SEDIMENTATION RATE 61 mm/hr (0-20)
== END ==
LOC: OD 12:28
PROVIDERS: ATTEND Nurse Practitioner Family
DX: L97.322 Non-pressure chronic ulcer of left ankle with fat layer exposed (principal)
CPT/HCPCS: 36415; 80053; 85025; 85652; 86140

== ENCOUNTER 2019-10-20 12:12 | Emergency (ER) | payer MEDICARE, BC ==
--- NOTE | 2019-10-20 12:41 | ER Document Report ---
ED Medical Screen (RME) - General Chief Complaint: Abnormal Lab Results Stated Complaint: ABNORMAL LABS Time Seen by Provider: 10/20/19 12:38 Primary Care Provider: FLAQUITA FLANAGAN PRODUCT MANAGEMENT MANAGER, PRODUCT MANAGEMENT MANAGER [Primary Care Provider] - Follow up as needed Mode of Arrival: Ambulatory Information source: Patient Notes: 78-year-old male sent to the emergency room from [facility]. She stated that they did his blood work and his hemoglobin was 6.1 hematocrit was 21. She states on September 28 his hemoglobin was 7. He is short of breath fatigue he does have a history of colon cancer and chronic anemia. He is a former smoker drinks 4-5 beers a day and does not use any alcohol. He is alert oriented and answering all questions appropriately. He states he has noticed some darker stools recently. He states he also has some wounds that are being treated on his course. I have greeted and performed a rapid initial assessment of this patient. A comprehensive ED assessment and evaluation of the patient, analysis of test results and completion of medical decision making process will be conducted by an additional ED providers. TRAVEL OUTSIDE OF THE [place] IN LAST 30 DAYS: No - Related Data Allergies/Adverse Reactions: No Known Allergies Allergy (Verified 10/20/19 12:37) Past Medical History - Past Medical History Cardiac Medical History: Reports: Hx Congestive Heart Failure, Hx Coronary Artery Disease, Hx Heart Attack, Hx Hypertension, Hx Peripheral Vascular Disease Pulmonary Medical History: Reports: Hx COPD Renal/ Medical History: Denies: Hx Peritoneal Dialysis Malignancy Medical History: Reports Hx Colorectal Cancer GI Medical History: Reports: Hx Gastroesophageal Reflux Disease, Hx Ulcerative Colitis - History of "ulcerative colitis 20 years ago. Colonoscopy normal last year Musculoskeltal Medical History: Reports Hx Arthritis Past Surgical History: Reports: Hx Cardiac Surgery - pacer/defib, Hx Coronary Stent - 3, Hx Orthopedic Surgery - L hip. R toe, Hx Pacemaker - AICD/pacer Physical Exam - Vital signs Vitals: Temp Pulse Resp BP Pulse Ox 97.9 F 71 16 114/62 98 10/20/19 12:24 10/20/19 12:24 10/20/19 12:24 10/20/19 12:24 10/20/19 12:24 Course - Vital Signs Vital signs: Temp Pulse Resp BP Pulse Ox 97.9 F 71 16 114/62 98 10/20/19 12:24 10/20/19 12:24 10/20/19 12:24 10/20/19 12:24 10/20/19 12:24 Doctor's Discharge - Discharge Referrals: FLAQUITA FLANAGAN NP, PRODUCT MANAGEMENT MANAGER [Primary Care Provider] - Follow up as needed
[2019-10-20 13:36] LABS: ABSOLUTE BASOPHILS # (AUTO) 0.1 10^3/uL (0.0-0.2); ABSOLUTE EOSINOPHILS # (AUTO) 0.2 10^3/uL (0.0-0.6); ABSOLUTE LYMPHOCYTES (AUTO) 1.2 10^3/uL (0.5-4.7); ABSOLUTE NEUT (AUTO) 7.5 10^3/uL (1.7-8.2); BASOPHILS % (AUTO) 0.6 % (0-2); HEMATOCRIT 22.6 % (37.9-51.0); MEAN CORPUSCULAR HEMOGLOBIN 20.7 pg (27.0-33.4); MEAN CORPUSCULAR HGB CONC 29.5 g/dL (32.0-36.0); PLATELET COUNT 245 10^3/uL (150-450); RED BLOOD COUNT 3.23 10^6/uL (4.35-5.55); RED CELL DISTRIBUTION WIDTH 21.8 % (11.5-14.0); SEGMENTED NEUTROPHILS % (AUTO) 75.4 % (42-78); TOTAL CELLS COUNTED % (AUTO) 100 %; WHITE BLOOD COUNT 9.9 10^3/uL (4.0-10.5)
[2019-10-20 13:41] LABS: HEMOGLOBIN 6.7 g/dL (13.5-17.0)
[2019-10-20 13:47] LABS: MEAN CORPUSCULAR VOLUME 70 fl (80-97)
[2019-10-20 13:54] LABS: ALBUMIN 3.5 g/dL (3.5-5.0); ALKALINE PHOSPHATASE 61 U/L (38-126); ANION GAP 6 (5-19); ASPARTATE AMINO TRANSFERASE 22 U/L (17-59); BILIRUBIN,DIRECT 0.4 mg/dL (0.0-0.4); BILIRUBIN,TOTAL 0.5 mg/dL (0.2-1.3); BLOOD UREA NITROGEN 19 mg/dL (7-20); CALCIUM 8.7 mg/dL (8.4-10.2); CARBON DIOXIDE 22 mmol/L (22-30); CHLORIDE 113 mmol/L (98-107); GLUCOSE 97 mg/dL (75-110); TOTAL PROTEIN 6.8 g/dL (6.3-8.2)
[2019-10-20] MEDS ORDERED: NORMAL SALINE 250 ML IV PRN ×2 (15:17)
--- NOTE | 2019-10-20 16:54 | ER Document Report ---
ED General - General Chief Complaint: Abnormal Lab Results Stated Complaint: ABNORMAL LABS Time Seen by Provider: 10/20/19 12:38 Primary Care Provider: FLAQUITA FLANAGAN INTERACTIVE DEVELOPER, INTERACTIVE DEVELOPER [NURSE PRACTITIONER] - Follow up in 3-5 days Mode of Arrival: Ambulatory TRAVEL OUTSIDE OF THE [place] IN LAST 30 DAYS: No - HPI Onset: Other - Several weeks Onset/Duration: Gradual Quality of pain: No pain Associated symptoms: Shortness of breath Exacerbated by: Walking Relieved by: Denies Notes: Patient is a 78-year-old male with a past medical history of colon cancer status post resection approximately 1 year ago at [facility] who presents with low hemoglobin. Patient states that he has had anemia in the past. He recently had a colonoscopy about 1 month ago and his doctor said that his colitis is flaring up. Patient states that he has had some dark stools. He denies any abdominal pain. Patient saw his family doctor today and had blood work done with a hemoglobin of 6.1. He states he has had several weeks of fatigue, lightheadedness, shortness of breath with exertion. He denies any chest pain or fevers. States he has had blood transfusions in the past. Not currently on chemotherapy or radiation. - Related Data Allergies/Adverse Reactions: No Known Allergies Allergy (Verified 10/20/19 12:37) Home Medications: augmentin, pregabalin, plavix, beta thomas Past Medical History - General Information source: Patient - Social History Smoking Status: Former Smoker Chew tobacco use (# tins/day): No Frequency of alcohol use: daily 4-5 beers Drug Abuse: None Family History: Reviewed & Not Pertinent Patient has homicidal ideation: No - Past Medical History Cardiac Medical History: Reports: Hx Congestive Heart Failure, Hx Coronary Artery Disease, Hx Heart Attack, Hx Hypertension, Hx Peripheral Vascular Disease Pulmonary Medical History: Reports: Hx COPD Renal/ Medical History: Denies: Hx Peritoneal Dialysis Malignancy Medical History: Reports Hx Colorectal Cancer GI Medical History: Reports: Hx Gastroesophageal Reflux Disease, Hx Ulcerative Colitis - History of "ulcerative colitis 20 years ago. Colonoscopy normal last year Musculoskeletal Medical History: Reports Hx Arthritis Past Surgical History: Reports: Hx Cardiac Surgery - pacer/defib, Hx Coronary Stent - 3, Hx Orthopedic Surgery - L hip. R toe, Hx Pacemaker - AICD/pacer Review of Systems - Review of Systems Notes: CONSTITUTIONAL: No fever, fatigue or weight loss. SKIN: No rash. HENT: No congestion, ear pain, or sore throat. EYES: No recent vision problems or eye pain. ENDOCRINE: No thyroid problems. No polyuria or polydipsia. CARDIOVASCULAR: No chest pain or edema. RESPIRATORY: Positive for shortness of breath GASTROINTESTINAL: No abdominal pain, nausea, vomiting, bloody stools or diarrhea. GENITOURINARY: No dysuria. MUSCULOSKELETAL: No joint pain or swelling. LYMPHATIC: No swollen glands. NEUROLOGIC: No seizures. No headache, focal weakness or sensory changes. HEMATOLOGIC: No unusual bruising. PSYCHIATRIC: No depression or anxiety. Physical Exam - Vital signs Vitals: Temp Pulse Resp BP Pulse Ox 97.9 F 71 16 114/62 98 10/20/19 12:24 10/20/19 12:24 10/20/19 12:24 10/20/19 12:24 10/20/19 12:24 - Notes Notes: VITAL SIGNS: Within normal limits. GENERAL: No acute distress, non-toxic appearance. HEAD: Normal with no signs of head trauma. EYES: EOMI, conjunctiva normal, no discharge. EARS: Hearing grossly intact. NOSE: Normal. THROAT: Oropharynx is normal. NECK: Normal range of motion, no tenderness, supple, no lymphadenopathy, No adenopathy, no JVD. CHEST: Clear breath sounds bilaterally. No wheezes, rales, or rhonchi. CARDIAC: Regular rate and rhythm. S1 and S2, without murmurs, gallops, or rubs. VASCULAR: No Edema. ABDOMEN: Normal and soft with no tenderness, no masses or pulsatile masses. GENITOURINARY: Normal, No tenderness LYMPATHTIC: No lymphadenopathy noted. MUSCULOSKELETAL: Extremities without cyanosis or edema. NEUROLOGICAL: Alert and oriented x 3. No focal sensory or strength deficits. Speech normal. Follows commands appropriately. PSYCHIATRIC: Normal Affect, judgement and mood. SKIN: Normal appearance with no rashes. Course - Re-evaluation Re-evalutation: 10/20/19 16:56 Patient's hemoglobin is 6.7. We will check a Hemoccult. Patient will need to be admitted for symptomatic anemia. I will discuss with the hospitalist. Hospitalist requested that I speak with the [facility] as that is his normal facility and they have GI capabilities. The physician at [facility] stated that they would not need to do a colonoscopy or endoscopy while he was in the hospital and he does not need to be transferred there. His Hemoccult is negative. He received 2 units of blood. Hospitalist evaluated the patient but patient refused admission to our hospital. He states he can call his doctor first thing in the morning. He does not want to stay in the hospital. I discussed the risks of patient leaving including worsening of his symptoms and patient understands the risks. He states he has had blood transfusions in the past and has never had a reaction. He was monitored for over 1 hour after his second transfusion. Patient will be discharged home. Return precautions provided. 10/21/19 02:45 - Vital Signs Vital signs: Temp Pulse Resp BP Pulse Ox 98.5 F 72 13 133/76 H 100 10/20/19 23:13 10/20/19 23:12 10/20/19 23:12 10/20/19 22:59 10/20/19 23:12 - Laboratory Result Diagrams: 10/20/19 21:34 10/20/19 13:10 Laboratory results interpreted by me: 10/20/19 10/20/19 10/20/19 13:10 13:10 13:10 RBC 3.23 L Hgb 6.7 L Hct 22.6 L MCV 70 L D MCH 20.7 L MCHC 29.5 L RDW 21.8 H Lymph % (Auto) 12.0 L Chloride 113 H Crossmatch See Detail 10/20/19 21:34 RBC 3.81 L Hgb 8.8 L D Hct 28.3 L MCV 74 L D MCH 23.0 L MCHC 31.0 L RDW 23.8 H Lymph % (Auto) Chloride Crossmatch Discharge - Discharge Clinical Impression: Anemia Qualifiers: Anemia type: unspecified type Qualified Code(s): D64.9 - Anemia, unspecified Condition: Stable Disposition: HOME, SELF-CARE Instructions: Anemia ([facility]) Additional Instructions: Please call your PCP Wednesday for follow-up. Immediately return to the ER for any shortness of breath, rash, fevers, any other symptoms. Return immediately if you have any GI bleeding. Referrals: FLAQUITA FLANAGAN NP, INTERACTIVE DEVELOPER [NURSE PRACTITIONER] - Follow up in 3-5 days
[2019-10-20] MEDS ORDERED: PANTOPRAZOLE SODIUM 40 MG VIAL IV ONE (18:46)
[2019-10-20] MEDS ORDERED: PREGABALIN 100 MG CAPSULE PO ONE (20:46)
[2019-10-20 22:10] LABS: ABSOLUTE BASOPHILS # (AUTO) 0.1 10^3/uL (0.0-0.2); ABSOLUTE EOSINOPHILS # (AUTO) 0.1 10^3/uL (0.0-0.6); ABSOLUTE LYMPHOCYTES (AUTO) 1.7 10^3/uL (0.5-4.7); ABSOLUTE NEUT (AUTO) 5.5 10^3/uL (1.7-8.2); BASOPHILS % (AUTO) 1.3 % (0-2); EOSINOPHILS % (AUTO) 1.2 % (0-6); HEMATOCRIT 28.3 % (37.9-51.0); LYMPHOCYTES % (AUTO) 20.1 % (13-45); MONOCYTES % (AUTO) 11.6 % (3-13); PLATELET COUNT 247 10^3/uL (150-450); RED BLOOD COUNT 3.81 10^6/uL (4.35-5.55); RED CELL DISTRIBUTION WIDTH 23.8 % (11.5-14.0); SEGMENTED NEUTROPHILS % (AUTO) 65.8 % (42-78); TOTAL CELLS COUNTED % (AUTO) 100 %; WHITE BLOOD COUNT 8.3 10^3/uL (4.0-10.5)
[2019-10-20 22:11] LABS: HEMOGLOBIN 8.8 g/dL (13.5-17.0)
[2019-10-20 22:12] LABS: MEAN CORPUSCULAR VOLUME 74 fl (80-97)
[2019-10-20 23:12] VITALS: BP 133/76
== END 2019-10-20 23:13 | disposition home or self-care (01) ==
LOC: ER 12:12
DX: D64.9 Anemia, unspecified (principal); R53.83 Other fatigue; R42 Dizziness and giddiness; R06.02 Shortness of breath; Z79.899 Other long term (current) drug therapy; Z79.02 Long term (current) use of antithrombotics/antiplatelets; I50.9 Heart failure, unspecified; I25.10 Atherosclerotic heart disease of native coronary artery without angina pectoris; I11.0 Hypertensive heart disease with heart failure; I25.2 Old myocardial infarction
CPT/HCPCS: 99285; 96374; 86900; 86901; 36415; 36430; 86850; 85025; 85730; 80053; 86920; P9016; C9113; J7050; A9270